=== PATIENT | female | born 1965 | race Hispanic/Latino ===

== ENCOUNTER 2020-12-16 13:40 | Emergency (ER) | payer SELFPAY ==
[2020-12-16] MEDS ORDERED: Famotidine In NaCl 20 mg/50 ml Premix Bag ONE (14:24)
[2020-12-16] MEDS ORDERED: methylPREDNISolone Sod Succ/PF 125 MG/2 ML VIAL ONE (14:24)
[2020-12-16] MEDS ORDERED: diphenhydrAMINE 50 MG/ML VIAL ONE (14:24)
[2020-12-16] MEDS ORDERED: Ondansetron PF 4 MG/2 ML Vial ONE (14:57)
== END 2020-12-16 16:00 | disposition home or self-care (01) ==
LOC: MADERS 13:40
DX: L50.0 Allergic urticaria (principal); R11.2 Nausea with vomiting, unspecified; R00.0 Tachycardia, unspecified
CPT/HCPCS: 96365; 96375; J1200; J2405; J2930